=== PATIENT | female | born 1980 | race Caucasian/White ===

== ENCOUNTER 2020-05-11 09:01 | Day surgery (SDC) | payer SELFPAY ==
[~2020-05-11] VITALS: Ht 180.3 cm; Wt 89.1 kg
[~2020-05-11 09:01] MED LIST: NORCO 325 MG-51 TAB PO; VALIUM 5MG T5 MG/TAB PO
[2020-05-11] MEDS ORDERED: LEXAPRO20 MG PO (09:25)
[2020-05-11] MEDS ORDERED: DESYREL 50MG50 MG PO (09:26)
[2020-05-11] MEDS ORDERED: ABILIFY2 MG PO (09:26)
[2020-05-11 09:30] VITALS: BP 111/83; PULSE 78; TEMP 98.3
[2020-05-11 11:30] VITALS: BP 109/82; PULSE 61; TEMP 97.7
--- NOTE | 2020-05-11 11:30 | NUR ---
Pt to [facility] via cart from [employer]. Pt drowsy, but awakens easily. Pt denies pain or nausea. Pt ambulates to recliner with stand by assistance x2. Warm blanket provided. VSS. Crackers and sprite given per pt request. Fiance in room. Call light within reach.
[2020-05-11 11:45] VITALS: BP 124/81; PULSE 66
--- NOTE | 2020-05-11 11:45 | NUR ---
Pt continues to rest. Tolerating food and fluids without difficulties. Call light within reach.
[2020-05-11 12:00] VITALS: BP 113/69; PULSE 62
--- NOTE | 2020-05-11 12:00 | NUR ---
into speak with pt.
--- NOTE | 2020-05-11 12:10 | NUR ---
Discharge instructions reviewed. Pt voices understanding. IV site discontinued with all parts intact. Pt up to dress. Call light within reach.
--- NOTE | 2020-05-11 12:20 | NUR ---
Pt escorted to private car via wheel chair. Pt accompanied home by her fiance.
== END 2020-05-11 12:20 | disposition home or self-care (01) ==
LOC: SDCO 09:01
DX: K57.30 Diverticulosis of large intestine without perforation or abscess without bleeding (principal); K64.8 Other hemorrhoids; K62.89 Other specified diseases of anus and rectum; R19.7 Diarrhea, unspecified; F41.9 Anxiety disorder, unspecified; Z90.49 Acquired absence of other specified parts of digestive tract; F17.210 Nicotine dependence, cigarettes, uncomplicated; F32.9 Major depressive disorder, single episode, unspecified
CPT/HCPCS: J2405; J2704; J3010; J7030